=== PATIENT | female | born 1935 | race African-American/Black ===

== ENCOUNTER 2016-08-13 20:06 | Inpatient (IN) | payer OTHER, MEDICAID ==
[~2016-08-13] VITALS: Ht 160 cm; Wt 77.1 kg
[~2016-08-13 20:06] MED LIST: AMLO10TA80 PO; ASPI-1035 PO; BECL8.7A6 INH; CYCL5TAB PO; FURO-152 PO; ISOS30TA6 PO; MELO-58 PO; METO25TA6 PO; OMEP20CA10 PO; pro air HHN
[2016-08-13 20:52] LABS: BASOPHILS % 0.4 % (0.0-2.0); DIFFERENTIAL COMMENT 0; EOSINOPHILS % 4.3 % (0.0-5.0); HEMATOCRIT. 25.8 % (36.0-48.0); HEMOGLOBIN. 7.8 g/dL (12.0-16.0); LYMPHOCYTES % 22.6 % (20.0-50.0); MEAN CORPUSCULAR HEMOGLOBIN 21.4 pg (28.0-32.0); MEAN CORPUSCULAR HGB CONC 30.4 g/dL (31.0-37.0); MEAN CORPUSCULAR VOLUME 70.4 fL (81.0-99.0); MEAN PLATELET VOLUME 9.4 fl (7.4-10.4); MONOCYTES % 6.5 % (2.0-8.0); NEUTROPHILS % 66.2 % (40.0-76.0); PLATELET 118 x1000/uL (130-400); RED BLOOD CELL COUNT 3.66 mill/uL (4.2-5.4); RED CELL DISTRIBUTION WIDTH 15.9 % (11.6-14.6); WHITE BLOOD COUNT 5.8 x1000/uL (4.5-11.0)
[2016-08-13 20:59] LABS: ALBUMIN 2.2 g/dL (3.4-5.0); ANION GAP 13; CARBON DIOXIDE 25 mEq/L (21-32); CHLORIDE 108 mEq/L (98-107); INDEX HEMOLYSI 1 (1-3); INDEX ICTERIC 1 (1-4); INDEX LIPEMIC 1 (1-3); UREA NITROGEN BLOOD 18 mg/dL (7-21)
[2016-08-13 21:02] LABS: INR 1.3; PROTHROMBIN TIME 13.8 sec
[2016-08-13 21:04] LABS: ALANINE AMINOTRANSFERASE 22 IU/L (13-61); eGFR > 60 mL/min (>60)
[2016-08-13 21:07] LABS: NT PRO B-TYPE NATRIURETIC PEP 1616 pg/mL (5-125); TROPONIN I < 0.02 ng/mL (0.00-0.04)
[2016-08-13] MEDS ORDERED: FUROSEMIDE 20MG/2ML VIAL IVP ONE (22:00)
[2016-08-13] MEDS ORDERED: ASPIRIN 81MG TABLET PO ONE (22:00)
[2016-08-13] MEDS ORDERED: DOCUSATE SODIUM 100MG CAPSULE PO PRN (22:45)
[2016-08-13] MEDS ORDERED: MAGNESIUM/ALUMINUM HYDROXIDE/SIMETHICONE 30ML UDC PO PRN (22:45)
[2016-08-13] MEDS ORDERED: CLONIDINE 0.1MG TABLET PO PRN (22:45)
[2016-08-13] MEDS ORDERED: ACETAMINOPHEN 325MG TABLET PO PRN (22:45)
[2016-08-13] MEDS ORDERED: IPRATROPIUM/ALBUTEROL 0.5-3(2.5)MG/3ML NEB INH PRN (22:45)
[2016-08-13] MEDS ORDERED: ONDANSETRON HCL 4MG/2ML VIAL IV PRN (22:45)
[2016-08-13 23:09] LABS: MAGNESIUM 1.9 mg/dL (1.8-2.4)
[2016-08-13 23:19] LABS: CLARITY URINE CLEAR (CLEAR); COLOR URINE DARK YELLOW (YELLOW); GLUCOSE URINE NEGATIVE (NEGATIVE); KETONES URINE NEGATIVE (NEGATIVE); LEUKOCYTE ESTERASE URINE 1+ (NEGATIVE); NITRITE URINE NEGATIVE (NEGATIVE); OCCULT BLOOD URINE 1+ (NEGATIVE); PROTEIN URINE TRACE (NEGATIVE); SPECIFIC GRAVITY URINE 1.022 (1.005-1.030)
[2016-08-13 23:27] LABS: *AMPHETAMINES SCREEN URINE NEGATIVE (NEGATIVE); *BARBITURATES SCREEN URINE NEGATIVE (NEGATIVE); *BENZODIAZEPINES SCREEN URINE NEGATIVE (NEGATIVE); *COCAINE SCREEN URINE NEGATIVE (NEGATIVE); CANNABINOID URINE SCREEN NEGATIVE (NEGATIVE); ECSTASY MDMA SCREEN URINE NEGATIVE (NEGATIVE); METHADONE URINE SCREEN NEGATIVE (NEGATIVE); OPIATES URINE SCREEN NEGATIVE (NEGATIVE); PHENCYCLIDINE URINE SCREEN NEGATIVE (NEGATIVE)
[2016-08-13 23:55] LABS: SQUAMOUS EPITHELIAL CELL URINE FEW /lpf (RARE/1+)
[2016-08-13 23:56] LABS: BACTERIA URINE TRACE
[2016-08-13 23:59] VITALS: BP 148/60
[2016-08-14] VITALS (8 sets, daily range): BP systolic 20–153; BP diastolic 51–97
[2016-08-14] MEDS ORDERED: QVAR IH (03:25)
[2016-08-14] MEDS ORDERED: NITROSTAT SL (03:25)
[2016-08-14] MEDS ORDERED: PRO AIR IH (03:25)
[2016-08-14] MEDS ORDERED: CYPR4TAB33 PO (03:25)
[2016-08-14] MEDS ORDERED: LEVO500T89 PO (03:28)
[2016-08-14 06:15] LABS: BASOPHILS % 0.6 % (0.0-2.0); DIFFERENTIAL COMMENT 0; EOSINOPHILS % 3.3 % (0.0-5.0); HEMATOCRIT. 23.2 % (36.0-48.0); HEMOGLOBIN. 7.3 g/dL (12.0-16.0); MEAN CORPUSCULAR HEMOGLOBIN 22.1 pg (28.0-32.0); MEAN CORPUSCULAR HGB CONC 31.3 g/dL (31.0-37.0); MEAN CORPUSCULAR VOLUME 70.6 fL (81.0-99.0); MEAN PLATELET VOLUME 9.4 fl (7.4-10.4); MONOCYTES % 9.9 % (2.0-8.0); NEUTROPHILS % 66.2 % (40.0-76.0); PLATELET 97 x1000/uL (130-400); RED BLOOD CELL COUNT 3.29 mill/uL (4.2-5.4); RED CELL DISTRIBUTION WIDTH 15.9 % (11.6-14.6); WHITE BLOOD COUNT 4.7 x1000/uL (4.5-11.0)
[2016-08-14 06:45] LABS: ALANINE AMINOTRANSFERASE 19 IU/L (13-61); ALBUMIN 1.9 g/dL (3.4-5.0); ANION GAP 10; CALCIUM 7.8 mg/dL (8.5-10.1); CARBON DIOXIDE 27 mEq/L (21-32); CHLORIDE 109 mEq/L (98-107); CREATINE KINASE 66 IU/L (26-192); CREATINE KINASE MB FRACTION < 0.5 ng/mL (0.5-3.6); HDL CHOLESTEROL 33 mg/dL (40-59); INDEX HEMOLYSI 1 (1-3); INDEX ICTERIC 1 (1-4); INDEX LIPEMIC 1 (1-3); LDL CHOLESTEROL 94 mg/dL (5-100); TRIGLYCERIDE 59 mg/dL (0-150); TROPONIN I 0.02 ng/mL (0.00-0.04); UREA NITROGEN BLOOD 17 mg/dL (7-21); eGFR > 60 mL/min (>60)
[2016-08-14] MEDS ORDERED: IPRATROPIUM/ALBUTEROL 0.5-3(2.5)MG/3ML NEB HHN PRN (12:30)
[2016-08-14] MEDS ORDERED: AMLODIPINE 10MG TABLET PO SCH (12:30)
[2016-08-14] MEDS ORDERED: CYCLOBENZAPRINE 10MG TABLET PO PRN (12:30)
[2016-08-14] MEDS: ISOSORBIDE MONONITRATE 30MG TABLET SR 24HR PO SCH (13:08)
[2016-08-14] MEDS ORDERED: LEVOFLOXACIN 500MG PREMIX 100 ML IV SCH (15:00)
[2016-08-14 16:21] LABS: CREATINE KINASE 70 IU/L (26-192); CREATINE KINASE MB FRACTION < 0.5 ng/mL (0.5-3.6); INDEX HEMOLYSI 1 (1-3); TROPONIN I < 0.02 ng/mL (0.00-0.04)
[2016-08-14] MEDS: CYPROHEPTADINE HCL 4 MG TABLET PO SCH (17:59)
[2016-08-14] MEDS: AMLODIPINE 5MG TABLET PO SCH (18:01)
[2016-08-15] VITALS (7 sets, daily range): BP systolic 113–130; BP diastolic 55–70
[2016-08-15 05:50] LABS: ANION GAP 10; CALCIUM 8.1 mg/dL (8.5-10.1); CARBON DIOXIDE 28 mEq/L (21-32); CHLORIDE 109 mEq/L (98-107); INDEX HEMOLYSI 1 (1-3); INDEX ICTERIC 2 (1-4); INDEX LIPEMIC 1 (1-3); UREA NITROGEN BLOOD 14 mg/dL (7-21); eGFR > 60 mL/min (>60)
[2016-08-15 06:14] LABS: BASOPHILS % 0.5 % (0.0-2.0); DIFFERENTIAL COMMENT 0; EOSINOPHILS % 3.1 % (0.0-5.0); HEMATOCRIT. 27.3 % (36.0-48.0); HEMOGLOBIN. 8.5 g/dL (12.0-16.0); MEAN CORPUSCULAR HEMOGLOBIN 22.3 pg (28.0-32.0); MEAN CORPUSCULAR HGB CONC 31.3 g/dL (31.0-37.0); MEAN CORPUSCULAR VOLUME 71.4 fL (81.0-99.0); MEAN PLATELET VOLUME 9.6 fl (7.4-10.4); NEUTROPHILS % 64.4 % (40.0-76.0); PLATELET 95 x1000/uL (130-400); RED BLOOD CELL COUNT 3.82 mill/uL (4.2-5.4); RED CELL DISTRIBUTION WIDTH 16.7 % (11.6-14.6); WHITE BLOOD COUNT 4.9 x1000/uL (4.5-11.0)
[2016-08-15] MEDS: AMLODIPINE 5MG TABLET PO SCH ×2 (08:01→16:24)
[2016-08-15] MEDS: ISOSORBIDE MONONITRATE 30MG TABLET SR 24HR PO SCH (08:01)
[2016-08-15] MEDS: METOPROLOL TARTRATE 25MG TABLET PO SCH ×2 (08:01→16:21)
[2016-08-15] MEDS: CYPROHEPTADINE HCL 4 MG TABLET PO SCH ×2 (08:01→16:21)
[2016-08-15] MEDS ORDERED: METOPROLOL TARTRATE 25MG TABLET PO SCH (09:00)
[2016-08-16] VITALS (11 sets, daily range): BP systolic 96–127; BP diastolic 48–68
[2016-08-16 06:49] LABS: BASOPHILS % 0.8 % (0.0-2.0); DIFFERENTIAL COMMENT 0; HEMATOCRIT. 25.3 % (36.0-48.0); HEMOGLOBIN. 7.9 g/dL (12.0-16.0); LYMPHOCYTES % 27.6 % (20.0-50.0); MEAN CORPUSCULAR HEMOGLOBIN 22.1 pg (28.0-32.0); MEAN CORPUSCULAR HGB CONC 31.3 g/dL (31.0-37.0); MEAN CORPUSCULAR VOLUME 70.5 fL (81.0-99.0); MEAN PLATELET VOLUME 9.6 fl (7.4-10.4); MONOCYTES % 9.7 % (2.0-8.0); NEUTROPHILS % 56.9 % (40.0-76.0); PLATELET 100 x1000/uL (130-400); RED BLOOD CELL COUNT 3.59 mill/uL (4.2-5.4); RED CELL DISTRIBUTION WIDTH 16.7 % (11.6-14.6); WHITE BLOOD COUNT 4.3 x1000/uL (4.5-11.0)
[2016-08-16 07:46] LABS: ANION GAP 10; CALCIUM 7.9 mg/dL (8.5-10.1); CARBON DIOXIDE 27 mEq/L (21-32); CHLORIDE 109 mEq/L (98-107); INDEX HEMOLYSI 1 (1-3); INDEX ICTERIC 1 (1-4); INDEX LIPEMIC 1 (1-3); UREA NITROGEN BLOOD 16 mg/dL (7-21); eGFR > 60 mL/min (>60)
[2016-08-16] MEDS: AMLODIPINE 5MG TABLET PO SCH ×2 (08:17→17:23)
[2016-08-16] MEDS: CYPROHEPTADINE HCL 4 MG TABLET PO SCH ×2 (08:18→17:22)
[2016-08-16] MEDS: METOPROLOL TARTRATE 25MG TABLET PO SCH ×2 (08:18→17:22)
[2016-08-16] MEDS: ISOSORBIDE MONONITRATE 30MG TABLET SR 24HR PO SCH (08:19)
[2016-08-16] MEDS ORDERED: LEVOFLOXACIN 500MG PREMIX 100 ML IV SCH (17:00)
[2016-08-17] VITALS: BP 116/69
[2016-08-17 04:00] VITALS: BP 118/61
[2016-08-17 06:46] LABS: BASOPHILS % 0.5 % (0.0-2.0); DIFFERENTIAL COMMENT 0; EOSINOPHILS % 4.4 % (0.0-5.0); HEMATOCRIT. 28.8 % (36.0-48.0); LYMPHOCYTES % 26.4 % (20.0-50.0); MEAN CORPUSCULAR HEMOGLOBIN 22.5 pg (28.0-32.0); MEAN CORPUSCULAR HGB CONC 31.3 g/dL (31.0-37.0); MEAN PLATELET VOLUME 9.6 fl (7.4-10.4); MONOCYTES % 10.5 % (2.0-8.0); NEUTROPHILS % 58.2 % (40.0-76.0); PLATELET 100 x1000/uL (130-400); RED CELL DISTRIBUTION WIDTH 17.4 % (11.6-14.6); WHITE BLOOD COUNT 4.4 x1000/uL (4.5-11.0)
[2016-08-17 07:16] LABS: CHLORIDE 108 mEq/L (98-107); INDEX HEMOLYSI 1 (1-3); INDEX ICTERIC 2 (1-4); INDEX LIPEMIC 1 (1-3)
[2016-08-17 07:22] LABS: ANION GAP 11; CALCIUM 7.9 mg/dL (8.5-10.1); CARBON DIOXIDE 26 mEq/L (21-32); UREA NITROGEN BLOOD 16 mg/dL (7-21); eGFR > 60 mL/min (>60)
[2016-08-17 08:00] VITALS: BP 132/59
[2016-08-17] MEDS: CYPROHEPTADINE HCL 4 MG TABLET PO SCH ×2 (08:43→16:19)
[2016-08-17] MEDS: AMLODIPINE 5MG TABLET PO SCH ×2 (08:44→16:19)
[2016-08-17] MEDS: ISOSORBIDE MONONITRATE 30MG TABLET SR 24HR PO SCH (08:44)
[2016-08-17] MEDS: METOPROLOL TARTRATE 25MG TABLET PO SCH ×2 (08:44→16:19)
[2016-08-17 12:00] VITALS: BP 115/57
[2016-08-17 16:00] VITALS: BP 121/61
[2016-08-17 20:00] VITALS: BP 99/59
[2016-08-18] VITALS: BP 113/57
[2016-08-18 04:00] VITALS: BP 119/62
[2016-08-18 05:30] LABS: BASOPHILS % 0.9 % (0.0-2.0); DIFFERENTIAL COMMENT 0; EOSINOPHILS % 5.7 % (0.0-5.0); HEMATOCRIT. 28.9 % (36.0-48.0); HEMOGLOBIN. 9.1 g/dL (12.0-16.0); LYMPHOCYTES % 27.9 % (20.0-50.0); MEAN CORPUSCULAR HEMOGLOBIN 22.5 pg (28.0-32.0); MEAN CORPUSCULAR HGB CONC 31.5 g/dL (31.0-37.0); MEAN CORPUSCULAR VOLUME 71.3 fL (81.0-99.0); MEAN PLATELET VOLUME 9.7 fl (7.4-10.4); NEUTROPHILS % 53.5 % (40.0-76.0); PLATELET 96 x1000/uL (130-400); RED BLOOD CELL COUNT 4.06 mill/uL (4.2-5.4); RED CELL DISTRIBUTION WIDTH 17.9 % (11.6-14.6); WHITE BLOOD COUNT 4.4 x1000/uL (4.5-11.0)
[2016-08-18 05:57] LABS: ANION GAP 11; CALCIUM 8.1 mg/dL (8.5-10.1); CARBON DIOXIDE 26 mEq/L (21-32); CHLORIDE 108 mEq/L (98-107); INDEX HEMOLYSI 1 (1-3); INDEX ICTERIC 1 (1-4); INDEX LIPEMIC 1 (1-3); UREA NITROGEN BLOOD 14 mg/dL (7-21)
[2016-08-18 06:00] LABS: eGFR > 60 mL/min (>60)
[2016-08-18 07:49] VITALS: BP 123/66
[2016-08-18] MEDS: CYPROHEPTADINE HCL 4 MG TABLET PO SCH (08:08)
[2016-08-18] MEDS: METOPROLOL TARTRATE 25MG TABLET PO SCH (08:09)
[2016-08-18] MEDS: AMLODIPINE 5MG TABLET PO SCH (08:10)
[2016-08-18] MEDS: ISOSORBIDE MONONITRATE 30MG TABLET SR 24HR PO SCH (08:10)
[2016-08-18 12:00] VITALS: BP 105/55
[2016-08-18 15:15] VITALS: BP 105/55
== END 2016-08-18 15:55 | disposition home health service (06) | DRG 291 ==
LOC: ER 20:07 → 8WST 22:13
PROVIDERS: ADMIT Internal Medicine; ATTEND Internal Medicine
PROC: 30233N1 Transfusion of Nonautologous Red Blood Cells into Peripheral Vein, Percutaneous Approach (ICD-10-PCS; principal; 2016-08-14)
DX: I11.0 Hypertensive heart disease with heart failure (principal); E43 Unspecified severe protein-calorie malnutrition; N39.0 Urinary tract infection, site not specified; J98.11 Atelectasis; I50.43 Acute on chronic combined systolic (congestive) and diastolic (congestive) heart failure; I50.9 Heart failure, unspecified; D64.9 Anemia, unspecified; F03.90 Unspecified dementia, unspecified severity, without behavioral disturbance, psychotic disturbance, mood disturbance, and anxiety; I07.1 Rheumatic tricuspid insufficiency; I27.2 Other secondary pulmonary hypertension; J45.909 Unspecified asthma, uncomplicated; K57.90 Diverticulosis of intestine, part unspecified, without perforation or abscess without bleeding; K74.60 Unspecified cirrhosis of liver; K80.20 Calculus of gallbladder without cholecystitis without obstruction; Z86.73 Personal history of transient ischemic attack (TIA), and cerebral infarction without residual deficits; Z88.0 Allergy status to penicillin
CPT/HCPCS: 36415; 71010; 74176; 76705; 80048; 80053; 80061; 80305; 81001; 82270; 82550; 82553; 83735; 83880; 84443; 84484; 85025; 85610; 86850; 86900; 86920; 87086; 93005; 93306; 93970; 96374; 97116; 97161; 99285; J1940; J1956; J7040; J7050; P9016

== ENCOUNTER 2016-09-01 01:10 | Inpatient (IN) | payer MEDICARE, MEDICAID ==
[~2016-09-01] VITALS: Ht 160 cm; Wt 83.9 kg
[~2016-09-01 01:10] MED LIST changes: -BECL8.7A6 INH; +CYPR4TAB33 PO; +LEVO500T89 PO; +NITROSTAT SL; -OMEP20CA10 PO; +PRO AIR IH; +QVAR IH
[2016-09-01] MEDS ORDERED: ONDANSETRON HCL 4MG/2ML VIAL IV STA (02:38)
[2016-09-01] MEDS ORDERED: MORPHINE SULFATE 4 MG/ML CPJ (NOT FOR IM USE) IV STA (02:38)
[2016-09-01] MEDS ORDERED: SODIUM CHLORIDE 0.9% 1,000 ML IV ONE (02:38)
[2016-09-01 03:22] LABS: CLARITY URINE CLEAR (CLEAR); COLOR URINE YELLOW (YELLOW); GLUCOSE URINE NEGATIVE (NEGATIVE); KETONES URINE NEGATIVE (NEGATIVE); LEUKOCYTE ESTERASE URINE 2+ (NEGATIVE); NITRITE URINE NEGATIVE (NEGATIVE); OCCULT BLOOD URINE NEGATIVE (NEGATIVE); PROTEIN URINE NEGATIVE (NEGATIVE); SPECIFIC GRAVITY URINE 1.017 (1.005-1.030)
[2016-09-01 03:30] LABS: BASOPHILS % 0.4 % (0.0-2.0); DIFFERENTIAL COMMENT 0; EOSINOPHILS % 2.8 % (0.0-5.0); HEMATOCRIT. 26.6 % (36.0-48.0); HEMOGLOBIN. 8.4 g/dL (12.0-16.0); LYMPHOCYTES % 16.7 % (20.0-50.0); MEAN CORPUSCULAR HEMOGLOBIN 22.5 pg (28.0-32.0); MEAN CORPUSCULAR HGB CONC 31.5 g/dL (31.0-37.0); MEAN CORPUSCULAR VOLUME 71.5 fL (81.0-99.0); MEAN PLATELET VOLUME 9.3 fl (7.4-10.4); MONOCYTES % 4.5 % (2.0-8.0); NEUTROPHILS % 75.6 % (40.0-76.0); PLATELET 98 x1000/uL (130-400); RED BLOOD CELL COUNT 3.71 mill/uL (4.2-5.4); WHITE BLOOD COUNT 6.6 x1000/uL (4.5-11.0)
[2016-09-01 03:36] LABS: INR 1.3; PROTHROMBIN TIME 13.8 sec
[2016-09-01 03:44] LABS: ALANINE AMINOTRANSFERASE 28 IU/L (13-61); ALBUMIN 2.2 g/dL (3.4-5.0); ANION GAP 9; CALCIUM 8.2 mg/dL (8.5-10.1); CARBON DIOXIDE 27 mEq/L (21-32); CHLORIDE 109 mEq/L (98-107); INDEX HEMOLYSI 1 (1-3); INDEX ICTERIC 1 (1-4); INDEX LIPEMIC 1 (1-3); TROPONIN I < 0.02 ng/mL (0.00-0.04); UREA NITROGEN BLOOD 19 mg/dL (7-21); eGFR > 60 mL/min (>60)
[2016-09-01 03:47] LABS: BACTERIA URINE TRACE; RBC URINE 0-2 /hpf (0-2); SQUAMOUS EPITHELIAL CELL URINE FEW /lpf (RARE/1+)
[2016-09-01] MEDS ORDERED: DOCUSATE SODIUM 100MG CAPSULE PO PRN (05:00)
[2016-09-01] MEDS ORDERED: CEFTRIAXONE 1 G PREMIX 50 ML IV SCH (05:00)
[2016-09-01] MEDS ORDERED: IPRATROPIUM/ALBUTEROL 0.5-3(2.5)MG/3ML NEB INH PRN (05:00)
[2016-09-01] MEDS ORDERED: MAGNESIUM/ALUMINUM HYDROXIDE/SIMETHICONE 30ML UDC PO PRN (05:00)
[2016-09-01] MEDS ORDERED: GUAIFENESIN 200MG/10ML SUGAR FREE UDC PO PRN (05:00)
[2016-09-01] MEDS ORDERED: ONDANSETRON HCL 4MG/2ML VIAL IV PRN (05:00)
[2016-09-01] MEDS ORDERED: ENOXAPARIN 40MG/0.4ML SYR SUBCUT SCH (05:00)
[2016-09-01] MEDS ORDERED: CLONIDINE 0.1MG TABLET PO PRN (05:00)
[2016-09-01] MEDS: ACETAMINOPHEN 325MG TABLET PO PRN ×2 (06:04→19:50)
[2016-09-01 06:16] LABS: CREATINE KINASE 96 IU/L (26-192); CREATINE KINASE MB FRACTION 0.7 ng/mL (0.5-3.6); INDEX HEMOLYSI 3 (1-3); TROPONIN I < 0.02 ng/mL (0.00-0.04)
[2016-09-01 08:20] VITALS: BP 135/63
[2016-09-01 08:30] VITALS: BP 135/63
[2016-09-01] MEDS: SODIUM CHLORIDE 0.9% 1,000 ML IV SCH ×2 (09:08→19:50)
[2016-09-01] MEDS: CEFTRIAXONE 1 G PREMIX 50 ML IV SCH (10:16)
[2016-09-01 12:00] VITALS: BP 115/61
[2016-09-01 16:00] VITALS: BP_SYST 115; BP_SYST 122; BP_DIAS 55; BP_DIAS 61
[2016-09-01 16:33] LABS: CREATINE KINASE 108 IU/L (26-192); CREATINE KINASE MB FRACTION 1.3 ng/mL (0.5-3.6); INDEX HEMOLYSI 1 (1-3); TROPONIN I < 0.02 ng/mL (0.00-0.04)
[2016-09-01] MEDS: CYCLOBENZAPRINE 10MG TABLET PO SCH (20:13)
[2016-09-01 20:50] VITALS: BP 132/70
[2016-09-01] MEDS ORDERED: MEDICATION NOT ON FORMULARY EA (Cyclobenzaprine Hcl 10 MG) PO SCH (21:00)
[2016-09-02] VITALS (10 sets, daily range): BP systolic 104–135; BP diastolic 46–79
[2016-09-02 06:40] LABS: INDEX HEMOLYSI 1 (1-3); INDEX ICTERIC 1 (1-4); INDEX LIPEMIC 1 (1-3)
[2016-09-02 07:01] LABS: BASOPHILS % 0.6 % (0.0-2.0); DIFFERENTIAL COMMENT 0; EOSINOPHILS % 5.4 % (0.0-5.0); HEMATOCRIT. 24.7 % (36.0-48.0); HEMOGLOBIN. 7.8 g/dL (12.0-16.0); LYMPHOCYTES % 22.4 % (20.0-50.0); MEAN CORPUSCULAR HEMOGLOBIN 22.6 pg (28.0-32.0); MEAN CORPUSCULAR HGB CONC 31.5 g/dL (31.0-37.0); MEAN CORPUSCULAR VOLUME 71.7 fL (81.0-99.0); MEAN PLATELET VOLUME 9.8 fl (7.4-10.4); MONOCYTES % 7.6 % (2.0-8.0); PLATELET 93 x1000/uL (130-400); RED BLOOD CELL COUNT 3.44 mill/uL (4.2-5.4); WHITE BLOOD COUNT 4.9 x1000/uL (4.5-11.0)
[2016-09-02 07:04] LABS: CHLORIDE 111 mEq/L (98-107)
[2016-09-02] MEDS: SODIUM CHLORIDE 0.9% 1,000 ML IV SCH ×2 (07:26→20:57)
[2016-09-02 07:42] LABS: ADD RBC MORPHOLOGY YES
[2016-09-02] MEDS ORDERED: MEDICATION NOT ON FORMULARY EA (Meloxicam 15 MG) PO SCH (09:00)
[2016-09-02 09:19] LABS: ALANINE AMINOTRANSFERASE 21 IU/L (13-61); ALBUMIN 1.8 g/dL (3.4-5.0); ANION GAP 11; CALCIUM 7.7 mg/dL (8.5-10.1); CARBON DIOXIDE 23 mEq/L (21-32); T4 FREE 1.47 ng/dL (0.76-1.46); UREA NITROGEN BLOOD 16 mg/dL (7-21); eGFR > 60 mL/min (>60)
[2016-09-02] MEDS: CEFTRIAXONE 1 G PREMIX 50 ML IV SCH (09:32)
[2016-09-02] MEDS: METOPROLOL TARTRATE 25MG TABLET PO SCH (09:33)
[2016-09-02] MEDS: AMLODIPINE 10MG TABLET PO SCH (09:33)
[2016-09-02] MEDS: ASPIRIN 81MG EC TABLET PO SCH (09:33)
[2016-09-02] MEDS: FUROSEMIDE 20MG TABLET PO SCH (09:33)
[2016-09-02] MEDS: MELOXICAM 7.5MG TABLET PO SCH (09:33)
[2016-09-02] MEDS: ISOSORBIDE MONONITRATE 30MG TABLET SR 24HR PO SCH (09:34)
[2016-09-02] MEDS: CYPROHEPTADINE HCL 4 MG TABLET PO SCH ×2 (11:01→17:01)
[2016-09-02] MEDS: ACETAMINOPHEN 325MG TABLET PO PRN (15:43)
[2016-09-02] MEDS: CYCLOBENZAPRINE 10MG TABLET PO SCH (20:56)
[2016-09-03 00:27] VITALS: BP 115/68
[2016-09-03 04:00] VITALS: BP 122/64
[2016-09-03 08:00] VITALS: BP 132/77
[2016-09-03] MEDS: ASPIRIN 81MG EC TABLET PO SCH (08:02)
[2016-09-03] MEDS: MELOXICAM 7.5MG TABLET PO SCH (08:16)
[2016-09-03] MEDS: FUROSEMIDE 20MG TABLET PO SCH (08:16)
[2016-09-03] MEDS: METOPROLOL TARTRATE 25MG TABLET PO SCH (08:16)
[2016-09-03] MEDS: AMLODIPINE 10MG TABLET PO SCH (08:16)
[2016-09-03] MEDS: CYPROHEPTADINE HCL 4 MG TABLET PO SCH ×3 (08:16→16:21)
[2016-09-03] MEDS: ISOSORBIDE MONONITRATE 30MG TABLET SR 24HR PO SCH (08:16)
[2016-09-03] MEDS: SODIUM CHLORIDE 0.9% 1,000 ML IV SCH ×2 (08:18→23:27)
[2016-09-03] MEDS: CEFTRIAXONE 1 G PREMIX 50 ML IV SCH (09:30)
[2016-09-03 12:00] VITALS: BP 113/56
[2016-09-03] MEDS: ACETAMINOPHEN 325MG TABLET PO PRN (14:02)
[2016-09-03 16:00] VITALS: BP 102/56
[2016-09-03 20:00] VITALS: BP 116/58
[2016-09-03] MEDS: CYCLOBENZAPRINE 10MG TABLET PO SCH (21:06)
[2016-09-04] VITALS: BP 109/60
[2016-09-04 04:00] VITALS: BP 115/60
[2016-09-04 07:05] LABS: BASOPHILS % 0.5 % (0.0-2.0); DIFFERENTIAL COMMENT 0; EOSINOPHILS % 6.9 % (0.0-5.0); HEMOGLOBIN. 8.6 g/dL (12.0-16.0); LYMPHOCYTES % 21.7 % (20.0-50.0); MEAN CORPUSCULAR HEMOGLOBIN 22.6 pg (28.0-32.0); MEAN CORPUSCULAR HGB CONC 31.8 g/dL (31.0-37.0); MEAN CORPUSCULAR VOLUME 71.1 fL (81.0-99.0); MEAN PLATELET VOLUME 9.3 fl (7.4-10.4); MONOCYTES % 7.6 % (2.0-8.0); NEUTROPHILS % 63.3 % (40.0-76.0); PLATELET 105 x1000/uL (130-400); RED BLOOD CELL COUNT 3.79 mill/uL (4.2-5.4); RED CELL DISTRIBUTION WIDTH 18.9 % (11.6-14.6); WHITE BLOOD COUNT 4.6 x1000/uL (4.5-11.0)
[2016-09-04 07:36] LABS: ANION GAP 12; CARBON DIOXIDE 26 mEq/L (21-32); CHLORIDE 111 mEq/L (98-107); INDEX HEMOLYSI 1 (1-3); INDEX ICTERIC 1 (1-4); INDEX LIPEMIC 1 (1-3); UREA NITROGEN BLOOD 16 mg/dL (7-21); eGFR > 60 mL/min (>60)
[2016-09-04 07:54] VITALS: BP 115/63
[2016-09-04] MEDS: CYPROHEPTADINE HCL 4 MG TABLET PO SCH (08:21)
[2016-09-04] MEDS: FUROSEMIDE 20MG TABLET PO SCH (08:21)
[2016-09-04] MEDS: ASPIRIN 81MG EC TABLET PO SCH (08:21)
[2016-09-04] MEDS: MELOXICAM 7.5MG TABLET PO SCH (08:22)
[2016-09-04] MEDS: ISOSORBIDE MONONITRATE 30MG TABLET SR 24HR PO SCH (08:22)
[2016-09-04] MEDS: AMLODIPINE 10MG TABLET PO SCH (08:22)
[2016-09-04] MEDS: METOPROLOL TARTRATE 25MG TABLET PO SCH (08:22)
[2016-09-04 10:00] VITALS: BP 115/63
[2016-09-04] MEDS: CEFTRIAXONE 1 G PREMIX 50 ML IV SCH (11:30)
[2016-09-04 11:53] VITALS: BP 112/56
== END 2016-09-04 15:45 | disposition home or self-care (01) | DRG 73 ==
LOC: ER 01:14 → 6WST 06:10
PROVIDERS: ADMIT Internal Medicine; ATTEND Internal Medicine
DX: G90.8 Other disorders of autonomic nervous system (principal); G93.41 Metabolic encephalopathy; E86.0 Dehydration; E78.5 Hyperlipidemia, unspecified; J44.9 Chronic obstructive pulmonary disease, unspecified; I11.0 Hypertensive heart disease with heart failure; I50.9 Heart failure, unspecified; M19.90 Unspecified osteoarthritis, unspecified site; W18.39XA Other fall on same level, initial encounter; Z88.0 Allergy status to penicillin; Z79.82 Long term (current) use of aspirin; Z79.899 Other long term (current) drug therapy; Y93.89 Activity, other specified; Y92.091 Bathroom in other non-institutional residence as the place of occurrence of the external cause; Y99.8 Other external cause status
CPT/HCPCS: 36415; 70450; 71010; 73030; 73502; 80048; 80053; 81001; 82550; 82553; 83605; 84439; 84443; 84484; 85025; 85610; 86850; 86900; 86920; 93005; 93970; 96361; 96374; 96375; 97116; 97162; 97530; 99291; J0696; J2270; J2405; J7030; P9016

== ENCOUNTER 2017-01-07 18:58 | Inpatient (IN) | payer MEDICARE, MEDICAID ==
[~2017-01-07] VITALS: Ht 160 cm; Wt 44.9 kg
[~2017-01-07 18:58] MED LIST changes: -ASPI-1035 PO; +ASPI-1159 PO
[2017-01-07 19:59] LABS: BASOPHILS % 0.9 % (0.0-2.0); EOSINOPHILS % 5.2 % (0.0-5.0); HEMATOCRIT. 25.6 % (36.0-48.0); MEAN CORPUSCULAR HEMOGLOBIN 21.2 pg (28.0-32.0); MEAN CORPUSCULAR VOLUME 67.8 fL (81.0-99.0); MEAN PLATELET VOLUME 9.2 fl (7.4-10.4); MONOCYTES % 9.8 % (2.0-8.0); NEUTROPHILS % 59.1 % (40.0-76.0); PLATELET 142 x1000/uL (130-400); RED BLOOD CELL COUNT 3.78 mill/uL (4.2-5.4); RED CELL DISTRIBUTION WIDTH 15.9 % (11.6-14.6)
[2017-01-07 20:01] LABS: CARBON DIOXIDE 21 mEq/L (21-32); CHLORIDE 113 mEq/L (98-107)
[2017-01-07 20:03] LABS: INR 1.2; PROTHROMBIN TIME 12.1 sec (9.4-11.6)
[2017-01-07 20:06] LABS: TROPONIN I < 0.02 ng/mL (0.00-0.04)
[2017-01-07 20:39] LABS: PLATELET ESTIMATE NORMAL
[2017-01-07 21:25] LABS: CLARITY URINE CLEAR (CLEAR); COLOR URINE YELLOW (YELLOW); GLUCOSE URINE NEGATIVE (NEGATIVE); KETONES URINE NEGATIVE (NEGATIVE); LEUKOCYTE ESTERASE URINE 3+ (NEGATIVE); NITRITE URINE NEGATIVE (NEGATIVE); OCCULT BLOOD URINE NEGATIVE (NEGATIVE); PROTEIN URINE NEGATIVE (NEGATIVE); SPECIFIC GRAVITY URINE 1.013 (1.005-1.030)
[2017-01-07 21:41] LABS: *AMPHETAMINES SCREEN URINE NEGATIVE (NEGATIVE); *BARBITURATES SCREEN URINE NEGATIVE (NEGATIVE); *BENZODIAZEPINES SCREEN URINE NEGATIVE (NEGATIVE); *COCAINE SCREEN URINE NEGATIVE (NEGATIVE); CANNABINOID URINE SCREEN NEGATIVE (NEGATIVE); METHADONE URINE SCREEN NEGATIVE (NEGATIVE); OPIATES URINE SCREEN NEGATIVE (NEGATIVE); PHENCYCLIDINE URINE SCREEN NEGATIVE (NEGATIVE)
[2017-01-08] MEDS ORDERED: ONDANSETRON HCL 4MG/2ML VIAL IV PRN (01:15)
[2017-01-08] MEDS ORDERED: DOCUSATE SODIUM 100MG CAPSULE PO PRN (01:15)
[2017-01-08] MEDS ORDERED: LORAZEPAM 2MG/ML CPJ IV PRN (01:15)
[2017-01-08] MEDS ORDERED: HYDROMORPHONE HCL/PF 2MG/ML CPJ IV PRN (01:15)
[2017-01-08] MEDS ORDERED: MAGNESIUM/ALUMINUM HYDROXIDE/SIMETHICONE 30ML UDC PO PRN (01:15)
[2017-01-08] MEDS ORDERED: ACETAMINOPHEN 325MG TABLET PO PRN (01:15)
[2017-01-08] MEDS ORDERED: GUAIFENESIN 200MG/10ML SUGAR FREE UDC PO PRN (01:15)
[2017-01-08] MEDS ORDERED: HYDROCODONE/ACETAMINOPHEN 5/325MG TABLET PO PRN (01:15)
[2017-01-08] MEDS ORDERED: NA PHOS,M-B/NA PHOS,DI-BA ENEMA 118ML PR PRN (01:15)
[2017-01-08] MEDS ORDERED: CLONIDINE 0.1MG TABLET PO PRN (01:15)
[2017-01-08] MEDS ORDERED: NITROFURANTOIN 100MG M/M CAPSULE PO ONE (02:00)
[2017-01-08] MEDS ORDERED: LEVOFLOXACIN 500MG PREMIX 100 ML IV NR (05:15)
[2017-01-08 08:00] VITALS: BP 116/91
[2017-01-08 08:21] VITALS: BP 116/91
[2017-01-08] MEDS ORDERED: FUROSEMIDE 40MG/4ML VIAL IV SCH (09:00)
[2017-01-08] MEDS: ENOXAPARIN 30MG/0.3ML SYR SUBCUT SCH (09:43)
[2017-01-08] MEDS: ASPIRIN 81MG EC TABLET PO SCH (09:43)
[2017-01-08 13:52] VITALS: BP 124/58
[2017-01-08 16:43] LABS: CREATINE KINASE 106 IU/L (26-192); CREATINE KINASE MB FRACTION < 0.5 ng/mL (0.5-3.6); TROPONIN I < 0.02 ng/mL (0.00-0.04)
[2017-01-08 17:14] VITALS: BP 112/68
[2017-01-08] MEDS ORDERED: NITROGLYCERIN 0.4MG TABLET SL SL PRN (18:45)
[2017-01-08 20:00] VITALS: BP 112/46
[2017-01-08] MEDS: ALBUTEROL (0.083%) 2.5MG/3ML NEB HHN SCH ×2 (21:26→21:29)
[2017-01-08] MEDS: CYCLOBENZAPRINE 10MG TABLET PO SCH (21:35)
[2017-01-09] VITALS: BP 119/50
[2017-01-09 00:32] LABS: CREATINE KINASE 88 IU/L (26-192); CREATINE KINASE MB FRACTION < 0.5 ng/mL (0.5-3.6)
[2017-01-09] MEDS: ALBUTEROL (0.083%) 2.5MG/3ML NEB HHN SCH ×6 (01:43→19:43)
[2017-01-09 04:00] VITALS: BP 116/39
[2017-01-09] MEDS ORDERED: LEVOFLOXACIN 250MG PREMIX 50 ML IV SCH (06:00)
[2017-01-09 07:20] LABS: BASOPHILS % 0.7 % (0.0-2.0); EOSINOPHILS % 2.7 % (0.0-5.0); HEMATOCRIT. 23.2 % (36.0-48.0); HEMOGLOBIN. 7.4 g/dL (12.0-16.0); LYMPHOCYTES % 27.3 % (20.0-50.0); MEAN CORPUSCULAR HEMOGLOBIN 21.7 pg (28.0-32.0); MEAN CORPUSCULAR VOLUME 68.1 fL (81.0-99.0); MEAN PLATELET VOLUME 9.9 fl (7.4-10.4); MONOCYTES % 10.7 % (2.0-8.0); NEUTROPHILS % 58.6 % (40.0-76.0); PLATELET 115 x1000/uL (130-400); RED CELL DISTRIBUTION WIDTH 15.4 % (11.6-14.6)
[2017-01-09 08:00] VITALS: BP 92/52
[2017-01-09] MEDS: METOPROLOL TARTRATE 25MG TABLET PO SCH (08:19)
[2017-01-09] MEDS: AMLODIPINE 10MG TABLET PO SCH (08:20)
[2017-01-09] MEDS: BUDESONIDE 0.5MG/2ML NEB HHN SCH ×2 (08:20→16:38)
[2017-01-09] MEDS: IPRATROPIUM/ALBUTEROL 0.5-3(2.5)MG/3ML NEB INH PRN (08:21)
[2017-01-09] MEDS: ISOSORBIDE MONONITRATE 30MG TABLET SR 24HR PO SCH (08:21)
[2017-01-09] MEDS: ASPIRIN 81MG EC TABLET PO SCH (08:32)
[2017-01-09] MEDS: CYPROHEPTADINE HCL 4 MG TABLET PO SCH ×2 (08:32→17:38)
[2017-01-09] MEDS: ENOXAPARIN 30MG/0.3ML SYR SUBCUT SCH (08:32)
[2017-01-09] MEDS ORDERED: MEDICATION NOT ON FORMULARY EA (Meloxicam 15 MG) PO SCH (09:00)
[2017-01-09] MEDS ORDERED: FUROSEMIDE 20MG TABLET PO SCH (09:00)
[2017-01-09] MEDS ORDERED: LEVOFLOXACIN 500MG TABLET PO SCH (09:00)
[2017-01-09] MEDS ORDERED: ASPIRIN 81MG EC TABLET PO SCH (09:00)
[2017-01-09 09:25] LABS: CARBON DIOXIDE 20 mEq/L (21-32); CHLORIDE 113 mEq/L (98-107); CREATINE KINASE 75 IU/L (26-192); CREATINE KINASE MB FRACTION < 0.5 ng/mL (0.5-3.6); LDL CHOLESTEROL 89 mg/dL (5-100)
[2017-01-09 09:31] LABS: HDL CHOLESTEROL 39 mg/dL (40-59); T4 FREE 1.68 ng/dL (0.76-1.46)
[2017-01-09 12:00] VITALS: BP 101/50
[2017-01-09 16:00] VITALS: BP 120/80
[2017-01-09 20:20] VITALS: BP 107/47
[2017-01-09] MEDS: CYCLOBENZAPRINE 10MG TABLET PO SCH (21:01)
[2017-01-10] VITALS: BP 117/45
[2017-01-10] MEDS: ALBUTEROL (0.083%) 2.5MG/3ML NEB HHN SCH ×5 (00:23→20:25)
[2017-01-10 04:19] VITALS: BP 113/56
[2017-01-10] MEDS: LEVOFLOXACIN 250MG PREMIX 50 ML IV SCH (07:01)
[2017-01-10] MEDS: BUDESONIDE 0.5MG/2ML NEB HHN SCH ×2 (07:15→20:22)
[2017-01-10 08:00] VITALS: BP 98/32
[2017-01-10] MEDS: METOPROLOL TARTRATE 25MG TABLET PO SCH (08:47)
[2017-01-10] MEDS: AMLODIPINE 10MG TABLET PO SCH (08:48)
[2017-01-10] MEDS: CYPROHEPTADINE HCL 4 MG TABLET PO SCH ×2 (08:50→16:36)
[2017-01-10] MEDS: ASPIRIN 81MG EC TABLET PO SCH (08:50)
[2017-01-10] MEDS: ISOSORBIDE MONONITRATE 30MG TABLET SR 24HR PO SCH (08:52)
[2017-01-10] MEDS ORDERED: SODIUM CHLORIDE 0.9% 500 ML IV SCH (11:00)
[2017-01-10 12:00] VITALS: BP 102/31
[2017-01-10 16:00] VITALS: BP 131/47
[2017-01-10 19:49] VITALS: BP 103/51
[2017-01-10] MEDS: CYCLOBENZAPRINE 10MG TABLET PO SCH (20:47)
[2017-01-11] VITALS: BP 90/58
[2017-01-11] MEDS: ALBUTEROL (0.083%) 2.5MG/3ML NEB HHN SCH ×5 (00:25→21:09)
[2017-01-11 04:00] VITALS: BP 106/70
[2017-01-11] MEDS: LEVOFLOXACIN 250MG PREMIX 50 ML IV SCH (05:53)
[2017-01-11 06:42] LABS: BASOPHILS % 0.9 % (0.0-2.0); HEMATOCRIT. 26.5 % (36.0-48.0); HEMOGLOBIN. 8.2 g/dL (12.0-16.0); LYMPHOCYTES % 24.7 % (20.0-50.0); MEAN CORPUSCULAR HEMOGLOBIN 21.1 pg (28.0-32.0); MEAN CORPUSCULAR VOLUME 68.2 fL (81.0-99.0); MEAN PLATELET VOLUME 9.9 fl (7.4-10.4); MONOCYTES % 8.5 % (2.0-8.0); NEUTROPHILS % 57.9 % (40.0-76.0); PLATELET 137 x1000/uL (130-400); RED BLOOD CELL COUNT 3.89 mill/uL (4.2-5.4); RED CELL DISTRIBUTION WIDTH 16.3 % (11.6-14.6)
[2017-01-11 08:00] VITALS: BP 105/40
[2017-01-11] MEDS: ASPIRIN 81MG EC TABLET PO SCH (08:46)
[2017-01-11] MEDS: CYPROHEPTADINE HCL 4 MG TABLET PO SCH ×2 (08:46→17:37)
[2017-01-11] MEDS: ISOSORBIDE MONONITRATE 30MG TABLET SR 24HR PO SCH (08:47)
[2017-01-11] MEDS: AMLODIPINE 10MG TABLET PO SCH (08:47)
[2017-01-11] MEDS: METOPROLOL TARTRATE 25MG TABLET PO SCH (08:47)
[2017-01-11] MEDS: BUDESONIDE 0.5MG/2ML NEB HHN SCH ×2 (09:26→21:09)
[2017-01-11 12:00] VITALS: BP 117/42
[2017-01-11 16:00] VITALS: BP 119/34
[2017-01-11] MEDS: IPRATROPIUM/ALBUTEROL 0.5-3(2.5)MG/3ML NEB INH PRN (16:14)
[2017-01-11 20:00] VITALS: BP 124/46
[2017-01-11] MEDS: CYCLOBENZAPRINE 10MG TABLET PO SCH (20:46)
[2017-01-12] VITALS: BP 108/36
[2017-01-12] MEDS: ALBUTEROL (0.083%) 2.5MG/3ML NEB HHN SCH ×4 (01:52→12:23)
[2017-01-12 04:00] VITALS: BP 94/44
[2017-01-12] MEDS: LEVOFLOXACIN 250MG PREMIX 50 ML IV SCH (06:25)
[2017-01-12 08:00] VITALS: BP 106/46
[2017-01-12] MEDS: METOPROLOL TARTRATE 25MG TABLET PO SCH (08:55)
[2017-01-12] MEDS: ISOSORBIDE MONONITRATE 30MG TABLET SR 24HR PO SCH (08:55)
[2017-01-12] MEDS: AMLODIPINE 10MG TABLET PO SCH (08:55)
[2017-01-12] MEDS: ASPIRIN 81MG EC TABLET PO SCH (09:04)
[2017-01-12] MEDS: CYPROHEPTADINE HCL 4 MG TABLET PO SCH (09:04)
[2017-01-12] MEDS: BUDESONIDE 0.5MG/2ML NEB HHN SCH (09:10)
[2017-01-12 11:48] VITALS: BP 106/40
[2017-01-12 13:02] VITALS: BP 106/40
[2017-01-13] MEDS ORDERED: LEVOFLOXACIN 250MG TABLET PO SCH (11:00)
== END 2017-01-12 15:37 | DRG 871 ==
LOC: ER 19:51 → ENRESERV 01-08 03:40 → 8WST 01-08 06:51
PROVIDERS: ADMIT Internal Medicine; ATTEND Internal Medicine
DX: A41.9 Sepsis, unspecified organism (principal); I50.33 Acute on chronic diastolic (congestive) heart failure; J96.00 Acute respiratory failure, unspecified whether with hypoxia or hypercapnia; N17.0 Acute kidney failure with tubular necrosis; E87.2 Acidosis; N39.0 Urinary tract infection, site not specified; E46 Unspecified protein-calorie malnutrition; Z68.1 Body mass index [BMI] 19.9 or less, adult; Z66 Do not resuscitate; B19.20 Unspecified viral hepatitis C without hepatic coma; E78.00 Pure hypercholesterolemia, unspecified; E78.5 Hyperlipidemia, unspecified; F03.90 Unspecified dementia, unspecified severity, without behavioral disturbance, psychotic disturbance, mood disturbance, and anxiety; I11.0 Hypertensive heart disease with heart failure; I25.10 Atherosclerotic heart disease of native coronary artery without angina pectoris; M19.90 Unspecified osteoarthritis, unspecified site; Z86.73 Personal history of transient ischemic attack (TIA), and cerebral infarction without residual deficits; F32.9 Major depressive disorder, single episode, unspecified; Z88.0 Allergy status to penicillin; E87.70 Fluid overload, unspecified; D64.9 Anemia, unspecified; J45.909 Unspecified asthma, uncomplicated
CPT/HCPCS: 36415; 71010; 80048; 80053; 80061; 80305; 81001; 82550; 82553; 83036; 83605; 83880; 84439; 84443; 84484; 85025; 85379; 85610; 87040; 87086; 93005; 93306; 93970; 94640; 94664; 96365; 99285; C1893; J1650; J1940; J1956; J7030; J7040; J7050; J7611; J7620; J7626

== ENCOUNTER 2017-09-17 17:42 | Inpatient (IN) | payer MEDICARE, MEDICAID ==
[~2017-09-17] VITALS: Ht 157.5 cm; Wt 68.0 kg
[~2017-09-17 17:42] MED LIST changes: +MELO-106 PO; -MELO-58 PO
[2017-09-17 18:15] VITALS: BP 126/40
[2017-09-17] MEDS ORDERED: GUAIFENESIN 200MG/10ML SUGAR FREE UDC PO PRN (18:30)
[2017-09-17] MEDS ORDERED: CLONIDINE 0.1MG TABLET PO PRN (18:30)
[2017-09-17] MEDS ORDERED: IPRATROPIUM/ALBUTEROL 0.5-3(2.5)MG/3ML NEB INH PRN (18:30)
[2017-09-17] MEDS ORDERED: ACETAMINOPHEN 325MG TABLET PO PRN (18:30)
[2017-09-17] MEDS ORDERED: DOCUSATE SODIUM 100MG CAPSULE PO PRN (18:30)
[2017-09-17] MEDS ORDERED: HYDROCODONE/ACETAMINOPHEN 5/325MG TABLET PO PRN (18:30)
[2017-09-17] MEDS ORDERED: ONDANSETRON HCL 4MG/2ML VIAL IV PRN (18:30)
[2017-09-17 20:00] VITALS: BP 115/36
[2017-09-17] MEDS: METOPROLOL TARTRATE 25MG TABLET PO SCH (21:00)
[2017-09-17] MEDS: SODIUM CHLORIDE 0.45% 1,000 ML IV SCH (23:27)
[2017-09-17 23:41] LABS: CREATINE KINASE 65 IU/L (26-192)
[2017-09-17 23:42] LABS: CREATINE KINASE MB FRACTION 0.7 ng/mL (0.5-3.6)
[2017-09-18] VITALS: BP 107/37
[2017-09-18 04:00] VITALS: BP 127/47
[2017-09-18 07:37] LABS: CHLORIDE 108 mEq/L (98-107)
[2017-09-18 07:45] LABS: BASOPHILS % 0.5 % (0.0-2.0); EOSINOPHILS % 3.7 % (0.0-5.0); HEMATOCRIT. 27.1 % (36.0-48.0); HEMOGLOBIN. 8.5 g/dL (12.0-16.0); LYMPHOCYTES % 31.1 % (20.0-50.0); MEAN CORPUSCULAR VOLUME 67.2 fL (81.0-99.0); MEAN PLATELET VOLUME 9.7 fl (7.4-10.4); MONOCYTES % 11.4 % (2.0-8.0); NEUTROPHILS % 53.3 % (40.0-76.0); PLATELET 117 x1000/uL (130-400); RED BLOOD CELL COUNT 4.04 mill/uL (4.2-5.4); RED CELL DISTRIBUTION WIDTH 14.6 % (11.6-14.6)
[2017-09-18 08:00] VITALS: BP 127/55
[2017-09-18 08:25] LABS: HDL CHOLESTEROL 64 mg/dL (40-59)
[2017-09-18 08:27] LABS: CREATINE KINASE 53 IU/L (26-192)
[2017-09-18 08:28] LABS: LDL CHOLESTEROL 80 mg/dL (5-100)
[2017-09-18 08:30] LABS: CREATINE KINASE MB FRACTION 0.7 ng/mL (0.5-3.6)
[2017-09-18 08:32] LABS: T4 FREE 1.42 ng/dL (0.76-1.46)
[2017-09-18 08:51] LABS: CLARITY URINE CLOUDY (CLEAR); COLOR URINE ORANGE (YELLOW); KETONES URINE NEGATIVE (NEGATIVE); LEUKOCYTE ESTERASE URINE 3+ (NEGATIVE); NITRITE URINE NEGATIVE (NEGATIVE); OCCULT BLOOD URINE 1+ (NEGATIVE); PH URINE 5.5 (4.5-8.0); PROTEIN URINE NEGATIVE (NEGATIVE); SPECIFIC GRAVITY URINE 1.017 (1.005-1.030)
[2017-09-18] MEDS: METOPROLOL TARTRATE 25MG TABLET PO SCH ×2 (09:00→21:00)
[2017-09-18] MEDS: ASPIRIN 81MG EC TABLET PO SCH (09:16)
[2017-09-18 11:27] LABS: TOTAL IRON BINDING CAPACITY 247 ug/dL (250-450)
[2017-09-18 12:00] VITALS: BP 124/50
[2017-09-18] MEDS ORDERED: LEVOFLOXACIN 500MG PREMIX 100 ML IV NR (12:00)
[2017-09-18] MEDS: ENOXAPARIN 40MG/0.4ML SYR SUBCUT SCH (15:04)
[2017-09-18] MEDS: SODIUM CHLORIDE 0.45% 1,000 ML IV SCH (15:13)
[2017-09-18 16:00] VITALS: BP 115/53
[2017-09-18 20:00] VITALS: BP 138/60
[2017-09-19] VITALS: BP 122/54
[2017-09-19 04:00] VITALS: BP 122/52
[2017-09-19 06:42] LABS: AMMONIA 48 uMol/L (<32)
[2017-09-19 08:00] VITALS: BP 113/44
[2017-09-19] MEDS: METOPROLOL TARTRATE 25MG TABLET PO SCH ×2 (09:00→21:11)
[2017-09-19 09:11] LABS: CHLORIDE 108 mEq/L (98-107)
[2017-09-19] MEDS: ASPIRIN 81MG EC TABLET PO SCH (09:20)
[2017-09-19] MEDS: ENOXAPARIN 40MG/0.4ML SYR SUBCUT SCH (09:20)
[2017-09-19 12:00] VITALS: BP 129/54
[2017-09-19] MEDS ORDERED: LEVOFLOXACIN 250MG PREMIX 50 ML IV SCH (12:00)
[2017-09-19 16:00] VITALS: BP 109/55
[2017-09-19 20:00] VITALS: BP 128/50
[2017-09-19] MEDS: SODIUM CHLORIDE 0.45% 1,000 ML IV SCH (21:11)
[2017-09-20] VITALS: BP 141/54
[2017-09-20 00:50] LABS: PLATELET ESTIMATE DECREASED
[2017-09-20 04:00] VITALS: BP 130/57
[2017-09-20 07:27] LABS: BASOPHILS % 0.4 % (0.0-2.0); EOSINOPHILS % 3.5 % (0.0-5.0); HEMATOCRIT. 26.9 % (36.0-48.0); HEMOGLOBIN. 8.5 g/dL (12.0-16.0); LYMPHOCYTES % 30.5 % (20.0-50.0); MEAN CORPUSCULAR VOLUME 66.3 fL (81.0-99.0); MEAN PLATELET VOLUME 9.5 fl (7.4-10.4); MONOCYTES % 11.1 % (2.0-8.0); NEUTROPHILS % 54.5 % (40.0-76.0); PLATELET 115 x1000/uL (130-400); RED BLOOD CELL COUNT 4.05 mill/uL (4.2-5.4); RED CELL DISTRIBUTION WIDTH 14.4 % (11.6-14.6)
[2017-09-20 08:00] VITALS: BP 128/74
[2017-09-20 08:20] LABS: CHLORIDE 110 mEq/L (98-107)
[2017-09-20] MEDS: ASPIRIN 81MG EC TABLET PO SCH (09:45)
[2017-09-20] MEDS: ENOXAPARIN 40MG/0.4ML SYR SUBCUT SCH (09:46)
[2017-09-20] MEDS: METOPROLOL TARTRATE 25MG TABLET PO SCH (09:46)
[2017-09-20] MEDS ORDERED: LEVOFLOXACIN 250MG TABLET PO SCH (11:00)
[2017-09-20 12:00] VITALS: BP 132/45
[2017-09-20] MEDS: SODIUM CHLORIDE 0.45% 1,000 ML IV SCH (13:40)
[2017-09-20 13:42] VITALS: BP 128/74
== END 2017-09-20 16:10 | DRG 189 ==
LOC: 6EST 17:42
PROVIDERS: ADMIT Hospitalist; ATTEND Hospitalist
DX: J96.00 Acute respiratory failure, unspecified whether with hypoxia or hypercapnia (principal); E43 Unspecified severe protein-calorie malnutrition; I11.0 Hypertensive heart disease with heart failure; I50.30 Unspecified diastolic (congestive) heart failure; D64.9 Anemia, unspecified; N39.0 Urinary tract infection, site not specified; B18.2 Chronic viral hepatitis C; F03.90 Unspecified dementia, unspecified severity, without behavioral disturbance, psychotic disturbance, mood disturbance, and anxiety; G40.909 Epilepsy, unspecified, not intractable, without status epilepticus; I25.10 Atherosclerotic heart disease of native coronary artery without angina pectoris; J45.909 Unspecified asthma, uncomplicated; K21.9 Gastro-esophageal reflux disease without esophagitis; K74.60 Unspecified cirrhosis of liver; M19.90 Unspecified osteoarthritis, unspecified site; Z66 Do not resuscitate; Z96.651 Presence of right artificial knee joint; F32.9 Major depressive disorder, single episode, unspecified; Z88.0 Allergy status to penicillin; Z68.27 Body mass index [BMI] 27.0-27.9, adult; Z86.73 Personal history of transient ischemic attack (TIA), and cerebral infarction without residual deficits
CPT/HCPCS: 36415; 71045; 80053; 80061; 81003; 82140; 82550; 82553; 83540; 83550; 83735; 84439; 84443; 84484; 85025; 87077; 87086; 87186; 93970; 97162; C1893; J1650; J1956